=== PATIENT | female | born 1950 | race Caucasian/White ===

== ENCOUNTER 2019-01-20 09:41 | Day surgery (SDC) | payer MEDICARE, MEDICAID ==
[2019-01-17 10:57] VITALS: BMI 23.3
[2019-01-20] MEDS ORDERED: Fentanyl 100 MCG/2 ML VIAL ONE ×2 (13:12→13:13)
--- NOTE | 2019-01-20 18:03 | MRI ---
MRI LUMBAR SPINE WITHOUT CONTRAST: Indications: Back pain. Lower extremity pain. Comparison: Correlation made to CT lumbar spine, 04-28-16. FINDINGS: Compression deformities of the lumbar spine have occurred since the CT of 04-28-16. There is anterior wedge compression of the L1 vertebra. There is loss of anterior height estimated at 75%. There is mil d retropulsion of the posterior superior cortex of L1. This compression has occurred since 2017. Ther e is mild edema in this vertebrae on the STIR sequence associated with a superior endplate deformatio n. This could represent a subacute compression. Loss of height of the L5 vertebra has also occurred since 2017. There is mild central compression of this vertebra with an inferior endplate defect. There is compression deformity of the T10 vertebra seen today. This was not imaged on the prior CT. T here is no edema within this vertebra. T12-L1: There is a disc bulge associated with mild retropulsion of the posterior corner of L1. These changes flatten the thecal sac. There is mild central canal stenosis due to retropulsion. No signific ant foraminal stenosis. L1-2: Mild disc bulge flattens the thecal sac. No central canal or foraminal stenosis. L2-3: Mild diffuse disc bulge flattens the anterior thecal sac. No significant central canal or yonny inal stenosis. L3-4: Mild disc bulge. No significant central canal or foraminal stenosis. L4-5: Diffuse disc bulge. Facet hypertrophy. No significant central canal or foraminal stenosis. L5-S1: Broad based disc bulge. Facet hypertrophy. No significant central canal or foraminal stenosis. IMPRESSION: 1. New compression deformities have occurred since the CT lumbar spine of 04-28-16. Moderate compressi on deformity is now seen at L1 with mild posterior retropulsion of the posterior superior cortex of L 1 as described above. This may indicate subacute injury. There is an associated superior endplate def ect. 2. Loss of height at L5 with central compression and inferior endplate defect has occurred since 2017 . 3. There is also compression deformity at T10. Loss of anterior height at this vertebra estimated at 60-70%. No edema is present. This vertebrae was not imaged on the prior CT and is age indeterminate. 4. Flattening of the thecal sac at T12-L1 due to posterior retropulsion results in mild central canal stenosis. 5. No other evidence of significant central canal or foraminal stenosis. POS: DAVID
== END 2019-01-20 14:20 | disposition home or self-care (01) ==
LOC: SDC/OP 09:41
PROVIDERS: ATTEND Family Medicine
DX: M47.26 Other spondylosis with radiculopathy, lumbar region (principal); M51.16 Intervertebral disc disorders with radiculopathy, lumbar region; M48.05 Spinal stenosis, thoracolumbar region; F41.9 Anxiety disorder, unspecified; M19.90 Unspecified osteoarthritis, unspecified site; F32.9 Major depressive disorder, single episode, unspecified; E78.00 Pure hypercholesterolemia, unspecified; I10 Essential (primary) hypertension; F17.210 Nicotine dependence, cigarettes, uncomplicated; J44.9 Chronic obstructive pulmonary disease, unspecified; E07.9 Disorder of thyroid, unspecified; Z79.899 Other long term (current) drug therapy
CPT/HCPCS: 72148; J3010